=== PATIENT | male | born 1990 | race Caucasian/White ===

== ENCOUNTER 2017-09-05 17:34 | Observation (INO) | payer OTHER ==
[~2017-09-05] VITALS: Ht 180.3 cm; Wt 61.2 kg
[2017-09-05 18:21] LABS: ABSOLUTE BASOPHIL COUNT 0.1 /CUMM (0.0-0.2); ABSOLUTE EOSINOPHIL COUNT 0.2 /CUMM (0.0-0.7); ABSOLUTE GRANULOCYTE CT 12.4 /CUMM (1.4-6.5); ABSOLUTE LYMPH COUNT 3.6 /CUMM (1.2-3.4); BASOPHIL % 0.3 % (0.0-2.0); EOSINOPHIL % 1.3 % (0-5); GRANULOCYTE % 72.1 % (42.2-75.2); HEMATOCRIT 45.9 % (42-52); MEAN CORPUSCULAR HGB 30.5 PG (27.0-31.0); MEAN CORPUSCULAR HGB CONC 33.1 G/DL (33.0-37.0); MEAN CORPUSCULAR VOLUME 92.4 FL (80.0-94.0); MEAN PLATELET VOLUME 10.8 FL (7.4-10.4); PLATELET COUNT 208 /CUMM (130-400); RBC DISTRIBUTION WIDTH 13.3 % (11.5-14.5); RED BLOOD CELL CT 4.97 /CUMM (4.70-6.10)
[2017-09-05 18:44] LABS: WHITE BLOOD CELL COUNT 17.2 /CUMM (4.8-10.8)
--- NOTE | 2017-09-05 20:08 | ED GI/GU/ABDOMINAL COMPLAINT ---
History of Present Illness General Chief Complaint: Abdominal Pain/Flank Pain Stated Complaint: ABD PAIN Source: patient Exam Limitations: no limitations Vital Signs & Intake/Output Vital Signs & Intake/Output Vital Signs Date Time Temp Pulse Resp B/P B/P Pulse O2 O2 Flow FiO2 Mean Ox Delivery Rate 09/05 1800 96.5 60 18 141/84 98 Room Air Room Air Allergies Coded Allergies: NO KNOWN ALLERGIES (11/21/10) Triage Note: TRIAGE: 27 Y/O MALE PRESENTS C/O 4-12/19 MID UPPER ABDOMINAL PAIN SICNE THIS MORNING. REPORTS LAST BM THIS MORNING - "SOFT/ LOOSE, A LITTLE IFFY, I WAS DRINKING." "IT COULD BE A PULLED MUSCLE, I WAS REALLY WRENCHING HARD WHILE I WORKING ON MY TRUCK." Triage Nurses Notes Reviewed? yes HPI: Patient presents with periumbilical abdominal pain that started yesterday. Patient described an achy sensation that is exacerbated with eating. Positive nausea but no vomiting. No constipation or diarrhea. The pain started yesterday midafternoon but then slowly went away by late evening. Patient woke up feeling fine but shortly after breakfast the pain came back and said the worst until today. There is no radiation of the pain. At worst the pain is 7 out of 10. Patient also states that for the past few days both of his testicles have been aching. The pain is constant. There are no aggravating or mitigating patches. There is no radiation of the pain. He rates the pain at a 3 out of 10. There is no known trauma. There is no dysuria. There is no penile discharge. There is no swelling. Past History Travel History Traveled to [place] past 21 day No Medical History Any Pertinent Medical History? 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 No Review of Systems Review of Systems Constitutional: Reports: no symptoms. EENTM: Reports: no symptoms. Respiratory: Reports: no symptoms. Cardiovascular: Reports: no symptoms. GI: Reports: see HPI, abdominal pain, nausea. Genitourinary: Reports: see HPI. Musculoskeletal: Reports: no symptoms. Skin: Reports: no symptoms. Neurological/Psychological: Reports: no symptoms. Hematologic/Endocrine: Reports: no symptoms. Immunologic/Allergic: Reports: no symptoms. All Other Systems: Reviewed and Negative Physical Exam Physical Exam General Appearance: well developed/nourished, alert, awake, mild distress Head: atraumatic, normal appearance Eyes: Bilateral: PERRL, EOMI, other (ANICTERIC). Ears, Nose, Throat, Mouth: hearing grossly normal, DRY MUCUS MEMBRANES Neck: normal inspection, supple, full range of motion Respiratory: normal breath sounds, chest non-tender, no respiratory distress, lungs clear Cardiovascular: regular rate/rhythm, normal peripheral pulses Gastrointestinal: normal bowel sounds, soft, no organomegaly, RLQ TENDERNESS, NO REBOUND OR GUARDING, NO HENDRICKSON'S SIGN Male Genitals: normal genitalia, normal cremaster reflex, NO SWELLING, NO TENDERNESS, NO DISCHARGE, NO HERNINA Back: normal inspection, normal range of motion, NO CVA TENDERNESS Extremities: normal range of motion Neurologic/Psych: no motor/sensory deficits, awake, alert, oriented x 3, normal gait, normal mood/affect Skin: intact, normal color, warm/dry Core Measures ACS in differential dx? No Sepsis Present: No Sepsis Focused Exam Completed? No Progress Differential Diagnosis: appendicitis, cholecystitis, diverticulitis, epididymitis, hernia, ischemic bowel, inflamm bowel dis, ureterolithiasis, urethritis, UTI/pyelo Plan of Care: Orders Procedure Date/time Status Nothing by Mouth 09/[address] in observation 09/05 2238 Active Pathway - chart 09/[address] in observation 09/05 2225 Active Patient Data 09/05 2225 Active Code Status 09/05 2225 Active URINALYSIS 09/05 2004 Complete LIPASE 09/05 1801 Complete COMPREHENSIVE METABOLIC PANEL 09/05 180 Complete CBC WITHOUT DIFFERENTIAL 09/05 180 Complete AMYLASE 09/05 180 Complete VTE Mechanical Prophylaxis 09/05 UNK Active Vital Signs 09/05 UNK Active Activity/Ambulation 09/05 UNK Active Current Medications Sig/Lee Start time Last Medication Dose Stop Time Status Admin Ampicillin Sodium/ 3,000 MG Q6 09/06 0400 UNVr Sulbactam Sodium (Unasyn) Sodium Chloride 100 ML (Normal Saline 0.9%) Acetaminophen 650 MG Q6P PRN 09/05 2229 UNVr (Tylenol) Dextrose/Water 1,000 ML .[id number] 09/05 2229 UNir (D5W 1000) Ketorolac 30 MG Q6-PRN PRN 09/05 2229 UNVr Tromethamine (Toradol) Morphine Sulfate 4 MG Q2P PRN 09/05 2229 UNVr (Morphine) Ondansetron HCl 4 MG Q6P PRN 09/05 2229 UNVr (Zofran) Oxycodone/ 1 TAB Q4P PRN 09/05 2229 UNVr Acetaminophen (Percocet) Oxycodone/ 2 TAB Q4P PRN 09/05 2229 UNVr Acetaminophen (Percocet) Promethazine HCl 12.5 MG Q6P PRN 09/05 2229 UNVr (Phenergen) 09/12 2228 Laboratory Tests 09/05/172108: Urine Color YEL, Urine Clarity CLEAR, Urine pH 6.0, Ur Specific [place] 1.010, Urine Protein NEG, Urine Ketones TRACE H, Urine Nitrite NEG, Urine Bilirubin NEG, Urine Urobilinogen 0.2, Ur Leukocyte Esterase NEG, Ur Microscopic SEDIMENT EXAMINED, Urine RBC RARE, Urine WBC RARE, Ur Epithelial Cells RARE, Urine Bacteria RARE H, Urine Mucus FEW, Urine Hemoglobin SMALL H, Urine Glucose NEG 09/05/17 1807: Anion Gap 12, Estimated GFR > 60, BUN/Creatinine Ratio 21.4, Glucose 97, Calcium 10.2, Total Bilirubin 0.6, AST 20, ALT 27, Alkaline Phosphatase 65, Total Protein 7.8, Albumin 5.1 H, Globulin 2.7, Albumin/Globulin Ratio 1.9, Amylase 71, Lipase 162, CBC w Diff NO MAN DIFF REQ, RBC 4.97, MCV 92.4, MCH 30.5, MCHC 33.1, RDW 13.3, MPV 10.8 H, Gran % 72.1, Lymphocytes % 20.7, Monocytes % 5.6, Eosinophils % 1.3, Basophils % 0.3, Absolute Granulocytes 12.4 H, Absolute Lymphocytes 3.6 H, Absolute Monocytes 1.0 H, Absolute Eosinophils 0.2, Absolute Basophils 0.1 Diagnostic Imaging: Viewed by Me: CT Scan. Discussed w/RAD: CT Scan. Radiology Impression: PATIENT: FERNANDEZ PALOMO PRESENT AGE: 27 PATIENT ACCOUNT NO: [id number] : 90 LOCATION: [facility] ORDERING PHYSICIAN: Jennie Garay MD SERVICE DATE: 09/05/17 EXAM TYPE: CAT - CT ABD & PELVIS W IV CONTRAST EXAMINATION: CT ABDOMEN AND PELVIS WITH CONTRAST CLINICAL INFORMATION: Right lower quadrant pain COMPARISON: None TECHNIQUE: Multidetector volumetric imaging was performed of the abdomen and pelvis following IV administration of 94 mL of Optiray 320 intravenous contrast. Sagittal and coronal reformatted images were obtained on the technologist's workstation. DLP: 240 mGy-cm FINDINGS: LUNG BASES: The visualized lung bases are unremarkable. LIVER, GALLBLADDER, AND BILIARY TREE: The liver is normal in size, shape, and attenuation. No focal hepatic lesion or biliary ductal dilatation is present. The gallbladder is unremarkable with no evidence of radiopaque gallstones, gallbladder wall thickening, or obvious pericholecystic inflammatory changes. PANCREAS: Unremarkable. SPLEEN: Unremarkable. ADRENAL GLANDS: Unremarkable. KIDNEYS AND URETERS: The kidneys are normal in size, shape, and attenuation. No hydronephrosis, hydroureter, or calculi seen. No perinephric stranding. BLADDER: Unremarkable. GASTROINTESTINAL TRACT: Lack of intra- abdominal fat significantly limits evaluation. A fluid-filled retrocecal tubular structure is identified in the right lower quadrant. The structure terminates near Morison's pouch. There is adjacent inflammatory change. The diameter of this structure measures 0.9 cm (image 40, series 2, image 50, series 602). Imaging findings are consistent with acute appendicitis. Remainder of the bowel appears unremarkable. ABDOMINAL WALL: No significant hernia is appreciated. LYMPH NODES: Normal. VASCULAR: Unremarkable. PELVIC VISCERA: Unremarkable. OSSEOUS STRUCTURES: Unremarkable. IMPRESSION: Findings consistent with acute appendicitis. Note the appendix is retrocecal in location. DICTATED BY: Tamika Hodges MD DATE/TIME DICTATED:09/05/172139 PIPE STRESS ENGINEER:JF DATE/TIME TRANSCRIBED:09/05/172139 CONFIDENTIAL, DO NOT COPY WITHOUT APPROPRIATE AUTHORIZATION. <Electronically signed in Other Vendor System> SIGNED BY: Tamika Hodges MD 09/05/172150 Initial ED EKG: none Comments: He has been controlled after the IV Zofran. The pain is unchanged after the IV Toradol however the patient does not want anything else for the pain this time. Departure Departure Disposition: STILL A PATIENT Condition: Stable Clinical Impression Primary Impression: Appendicitis Referrals: Terrie WATT,Devika Rivera (PCP/Family) Departure Forms: Customer Survey General Discharge Information Observation Note Spoke With: Cristian Pham MD Physician Advisor Notified: DIANA WATT,JENNIE Haney. Place Patient In: Non-ED OBS Care Area Rationale for Observation: My rational for observation is as follows [NPO, IV ABX, SURGERY IN THE AM].
--- NOTE | 2017-09-05 21:51 | CT SCAN REPORT ---
EXAMINATION: CT ABDOMEN AND PELVIS WITH CONTRAST CLINICAL INFORMATION: Right lower quadrant pain COMPARISON: None TECHNIQUE: Multidetector volumetric imaging was performed of the abdomen and pelvis following IV administration of 94 mL of Optiray 320 intravenous contrast. Sagittal and coronal reformatted images were obtained on the technologist's workstation. DLP: 240 mGy-cm FINDINGS: LUNG BASES: The visualized lung bases are unremarkable. LIVER, GALLBLADDER, AND BILIARY TREE: The liver is normal in size, shape, and attenuation. No focal hepatic lesion or biliary ductal dilatation is present. The gallbladder is unremarkable with no evidence of radiopaque gallstones, gallbladder wall thickening, or obvious pericholecystic inflammatory changes. PANCREAS: Unremarkable. SPLEEN: Unremarkable. ADRENAL GLANDS: Unremarkable. KIDNEYS AND URETERS: The kidneys are normal in size, shape, and attenuation. No hydronephrosis, hydroureter, or calculi seen. No perinephric stranding. BLADDER: Unremarkable. GASTROINTESTINAL TRACT: Lack of intra-abdominal fat significantly limits evaluation. A fluid-filled retrocecal tubular structure is identified in the right lower quadrant. The structure terminates near Morison's pouch. There is adjacent inflammatory change. The diameter of this structure measures 0.9 cm (image 40, series 2, image 50, series 602). Imaging findings are consistent with acute appendicitis. Remainder of the bowel appears unremarkable. ABDOMINAL WALL: No significant hernia is appreciated. LYMPH NODES: Normal. VASCULAR: Unremarkable. PELVIC VISCERA: Unremarkable. OSSEOUS STRUCTURES: Unremarkable. IMPRESSION: Findings consistent with acute appendicitis. Note the appendix is retrocecal in location.
--- NOTE | 2017-09-05 22:49 | History & Physical Pre-Op ---
James Nicholson 09/05/17 0921: General Information and HPI MD Statement: I have seen and personally examined FERNANDEZ PALOMO and documented this H&P. The patient is a 27 year old M who presented with a patient stated chief complaint of ABDOMINAL PAIN. Source of Information: patient Exam Limitations: no limitations History of Present Illness: 27 yo healthy male with 2 days of abdominal pain, started central, then localized to the RLQ today. getting worse. moderate to severe pain, sharp. no nvd, no fever. had normal appetite until after lunch, pain became more severe then. was able to eat a full lunch, had a ham sandwich. mother and father both had appendicitis. he is a cigarette smoker. no hx of same, no tx thus far. was seen in ED and CT scan shows appendicitis. surgery was consulted for management. 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 EENTM: Reports: no symptoms. Cardiovascular: Reports: no symptoms. Respiratory: Reports: no symptoms. GI: Reports: see HPI. Genitourinary: Reports: no symptoms. Musculoskeletal: Reports: no symptoms. Skin: Reports: no symptoms. Neurological/Psychological: Reports: no symptoms. Hematologic/Endocrine: Reports: no symptoms. Exam & Diagnostic Data Last 24 Hrs of Vital Signs/I&O Vital Signs Date Time Temp Pulse Resp B/P B/P Pulse O2 O2 Flow FiO2 Mean Ox Delivery Rate 09/05 1800 96.5 60 18 141/84 98 Room Air Room Air Physical Exam General Appearance Alert, Oriented X3, Cooperative, No Acute Distress Skin No Rashes HEENT Atraumatic, PERRLA, EOMI, Mucous Membr. moist/pink Neck Supple, No JVD, No thryomegaly Cardiovascular Regular Rate, Normal S1, Normal S2, No Murmurs Lungs Clear to Auscultation, Normal Air Movement Abdomen Normal Bowel Sounds, Soft, TENDER RLQ OVER MCBURNEYS POINT. NEG ROVSING , NEG PSOAS SIGN NO OTHER ABDOMINAL TENDERNESS Neurological Normal Gait, Normal Speech, Strength at 5/5 X4 Ext, Normal Tone, Sensation Intact Extremities No Clubbing, No Cyanosis, No Edema, Normal Pulses, No Tenderness/ Swelling Last 24 Hrs of Labs/Preston: Laboratory Tests 09/05/172108: Urine Color YEL, Urine Clarity CLEAR, Urine pH 6.0, Ur Specific [place] 1.010, Urine Protein NEG, Urine Ketones TRACE H, Urine Nitrite NEG, Urine Bilirubin NEG, Urine Urobilinogen 0.2, Ur Leukocyte Esterase NEG, Ur Microscopic SEDIMENT EXAMINED, Urine RBC RARE, Urine WBC RARE, Ur Epithelial Cells RARE, Urine Bacteria RARE H, Urine Mucus FEW, Urine Hemoglobin SMALL H, Urine Glucose NEG 09/05/171806: Anion Gap 12, Estimated GFR > 60, BUN/Creatinine Ratio 21.4, Glucose 97, Calcium 10.2, Total Bilirubin 0.6, AST 20, ALT 27, Alkaline Phosphatase 65, Total Protein 7.8, Albumin 5.1 H, Globulin 2.7, Albumin/Globulin Ratio 1.9, Amylase 71, Lipase 162, CBC w Diff NO MAN DIFF REQ, RBC 4.97, MCV 92.4, MCH 30.5, MCHC 33.1, RDW 13.3, MPV 10.8 H, Gran % 72.1, Lymphocytes % 20.7, Monocytes % 5.6, Eosinophils % 1.3, Basophils % 0.3, Absolute Granulocytes 12.4 H, Absolute Lymphocytes 3.6 H, Absolute Monocytes 1.0 H, Absolute Eosinophils 0.2, Absolute Basophils 0.1 Diagnostic Data Other Results PATIENT: FERNANDEZ PALOMO PRESENT AGE: 27 PATIENT ACCOUNT NO: [id number] : 90 LOCATION: [facility] [place] ORDERING PHYSICIAN: Skyler Garay MD SERVICE DATE: 09/05/17 EXAM TYPE: CAT - CT ABD & PELVIS W IV CONTRAST EXAMINATION: CT ABDOMEN AND PELVIS WITH CONTRAST CLINICAL INFORMATION: Right lower quadrant pain COMPARISON: None TECHNIQUE: Multidetector volumetric imaging was performed of the abdomen and pelvis following IV administration of 94 mL of Optiray 320 intravenous contrast. Sagittal and coronal reformatted images were obtained on the technologist's workstation. DLP: 240 mGy-cm FINDINGS: LUNG BASES: The visualized lung bases are unremarkable. LIVER, GALLBLADDER, AND BILIARY TREE: The liver is normal in size, shape, and attenuation. No focal hepatic lesion or biliary ductal dilatation is present. The gallbladder is unremarkable with no evidence of radiopaque gallstones, gallbladder wall thickening, or obvious pericholecystic inflammatory changes. PANCREAS: Unremarkable. SPLEEN: Unremarkable. ADRENAL GLANDS: Unremarkable. KIDNEYS AND URETERS: The kidneys are normal in size, shape, and attenuation. No hydronephrosis, hydroureter, or calculi seen. No perinephric stranding. BLADDER: Unremarkable. GASTROINTESTINAL TRACT: Lack of intra-abdominal fat significantly limits evaluation. A fluid-filled retrocecal tubular structure is identified in the right lower quadrant. The structure terminates near Morison's pouch. There is adjacent inflammatory change. The diameter of this structure measures 0.9 cm (image 40, series 2, image 50, series 602). Imaging findings are consistent with acute appendicitis. Remainder of the bowel appears unremarkable. ABDOMINAL WALL: No significant hernia is appreciated. LYMPH NODES: Normal. VASCULAR: Unremarkable. PELVIC VISCERA: Unremarkable. OSSEOUS STRUCTURES: Unremarkable. IMPRESSION: Findings consistent with acute appendicitis. Note the appendix is retrocecal in location. DICTATED BY: Tamika Hodges MD DATE/TIME DICTATED:09/05/172139 PARAMEDICAL AIDE:JF DATE/TIME TRANSCRIBED:09/05/172139 Assessment/Plan Assessment/Plan: acute appendicitis unasyn 3g q6 npo to OR in am for lap appy IVF pain meds as needed 23hr observation DW Dr Ankit Abarca pt and parents who understand and agree with plan. As Ranked By This Provider Problem List: 1. Appendicitis Cristian Pham MD 09/06/17 1223: Attending MD Review Statement Attending Statement Attending MD Statement: examined this patient, discuss w/resident/PA/BATTERY PLATE ASSEMBLER, reviewed images Attending Assessment/Plan: 27 yo young male with acute appendicitis. Recommend broad spectrum IV abx and laparoscopic appendectomy when OR room available. Family history significant for rocuronium anaphylactic reaction. Will d/w anesthesia.
[2017-09-06 00:24] VITALS: BP 118/66
[2017-09-06 07:11] VITALS: BP 118/66
--- NOTE | 2017-09-06 08:56 | Admission Core Measures ---
Acute Coronary Syndrome (CM) ACS Core Measures Acute Coronary Syndrome Diagnosis No Congestive Heart Failure (NEW) CHF Core Measures Congestive Heart Failure Diagnosis No Cerebrovascular Accident (NEW) CVA Core Measures CVA/TIA Diagnosis No Venous Thromboembolism VTE Core Christie (View Protocol) VTE Risk Factors Acute Medical Illness No Mechanical VTE Prophylaxis d/t N/A MechProphylax Ordered No VTE Pharm Prophylaxis d/t NA PharmProphylax ordered Problem List As ranked by this Provider includes Assessment & Plan 1. Appendicitis
--- NOTE | 2017-09-06 16:17 | Operative Report ---
Operative/Inv Procedure Report Surgery Date: 09/06/17 Name of Procedure: Laparoscopic appendectomy Pre-Operative Diagnosis: Acute appendicitis Post-Operative Diagnosis: Same Estimated Blood Loss: scant Surgeon/Worm Picker: Ankit WATT,Cristian Haney/Barbara GARCIA Anesthesia: general endotracheal tube Specimens: Appendix Operative/Procedure Note Note: After consent patient is brought to the operating room and laid supine. General anesthesia was obtained his abdomen was prepped and draped. Skin above the umbilicus was after local anesthesia a curvilinear incision made sharply. We dissected through subcutaneous tissues tissues bluntly and identified the fascia. It was grasped with Hyacinth's and a fasciotomy created sharply. The peritoneum was entered sharply and a blunt Mcarthur port was placed. Pneumoperitoneum was achieved. 2, 5 mm ports were placed in the suprapubic region and left lower quadrant, after local anesthesia was instilled and under direct vision the camera. Patient placed in Trendelenburg and rotated towards the left. The abdomen was explored. There was a retro-cecal appendix moderately inflamed but no perforation. We took down the peritoneum laterally to mobilize the cecum. The appendix was encased in retroperitoneal tissues and took some dissection to free it up. Eventually were able to mobilize enough to bring it into the field of view. It was quite elongated and inflamed. A window in the base of the mesentery was developed with a [place] dissector. The mesentery is divided with Endo KEENAN Herron load. The base was divided with the reload. It was placed in Endo Catch bag and cinched up. Further exploration revealed that a piece of the appendix was still in place. It was dissected free and resected with reload of the stapler. Was extracted and passed off the field. The right lower quadrant and pelvis were then irrigated with normal saline. Hemostasis was adequate. Ports then removed. The fascia was closed 0 Vicryl suture. Skin incisions closed with 4-0 Vicryl. Steri-Strips and sterile dressing applied. Sponge and needle counts are correct CC: Terrie WATT,Devika Rivera
--- NOTE | 2017-09-06 17:16 | PN- General Surgery ---
Subjective Subjective: Post op check Awake, alert No complaints at this time Denies nausea, surgical pain - tolerable Objective Vital Signs and I&Os Vital Signs Date Time Temp Pulse Resp B/P B/P Pulse O2 O2 Flow FiO2 Mean Ox Delivery Rate 09/06 0711 97.9 64 18 118/66 100 09/06 0024 97.9 56 18 118/66 95 09/06 0004 98.0 51 18 124/63 98 Room Air 09/05 2249 98.3 56 17 131/71 100 Room Air 09/05 1800 96.5 60 18 141/84 98 Room Air Room Air Intake & Output 09/06 1600 09/06 0800 09/06 0000 09/05 1600 09/05 0800 09/05 0000 Intake Total 110 145 6014 Output Total 350 250 Balance 510 100 750 Intake, IV 560 194 2472 Intake, Oral 60 Output, Urine 350 250 Patient 135 lb 135 lb Weight Weight Reported by Patient Measurement Method Physical Exam: BP 137/80 RR 16 Sat 97% RA General: alert and oriented times three chest: clear anteriorly bilaterally, RRR Abd: soft, non distended Ext: warm, no edema Wds: dressed, dry Assessment/Plan Assessment/Plan 27yo male s/p lap appy dc home fu 2 weeks pain management Core Measures Venous Thromboembolism VTE Risk Factors Acute Medical Illness No Mechanical VTE Prophylaxis d/t N/A MechProphylax Ordered No VTE Pharm Prophylaxis d/t NA PharmProphylax ordered
[2017-09-06] MEDS ORDERED: PERCOCET 5-3251 EACH PO (17:17)
--- NOTE | 2017-09-06 17:20 | Patient Discharge Instructions ---
Discharge Instructions General Discharge Information You were seen/treated for: appendicitis You had these procedures: lap appendectomy Watch for these problems: temp>101. increased redness or drainage of wounds Do not soak the wound: Yes Other wound care: Keep incision clean and dry Diet Continue normal diet: Yes Activity Activity Self Limited: Yes Pounds, do NOT lift more than: 10 Acute Coronary Syndrome Inclusion Criteria At DC or during hospital stay patient has or had the following: ACS DIAGNOSIS No Discharge Core Measures Meds if any: Prescribed or Continued at Discharge Meds if any: NOT Prescribed or Continued at Discharge Congestive Heart Failure Inclusion Criteria At DC or during hospital stay patient has or had the following: CHF DIAGNOSIS No Discharge Core Measures Meds if any: Prescribed or Continued at Discharge Meds if any: NOT Prescribed or Continued at Discharge Cerebrovascular accident Inclusion Criteria At DC or during hospital stay patient has or had the following: CVA/TIA Diagnosis No Discharge Core Measures Meds if any: Prescribed or Continued at Discharge Meds if any: NOT Prescribed or Continued at Discharge Venous thromboembolism Inclusion Criteria VTE Diagnosis No VTE Type NONE VTE Confirmed by (Test) NONE Discharge Core Measures - Per Current guidelines, there needs to be overlap - treatment for the first 5 days of Warfarin therapy. - If discharged on Warfarin prior to 5 days of - overlap therapy, the patient will need to be - assessed for post discharge needs including - *Post discharge parental anticoagulation - *Warfarin and/or parental anticoagulation education - *Follow up date to check INR post discharge At least 5 days overlap therapy as Inpatient No Meds if any: Prescribed or Continued at Discharge Note: Overlap Therapy is Warfarin and Anticoagulant Meds if any: NOT Prescribed or Continued at Discharge
[2017-09-06 19:31] VITALS: BP 126/84
[2017-09-06 22:55] VITALS: BP 130/70
[2017-09-07 06:28] VITALS: BP 120/80
--- NOTE | 2017-09-07 10:25 | PN- General Surgery ---
Subjective Subjective: No acute overnight events reported. C/O alize-incisional pain. No nausea,no emesis. Tolerating po. Denies chest pain, shortness of breath and difficulty breathing. Has been oob ambulating. Has voided. Objective Vital Signs and I&Os Vital Signs Date Time Temp Pulse Resp B/P B/P Pulse O2 O2 Flow FiO2 Mean Ox Delivery Rate 09/07 0628 98.0 64 20 120/80 98 Room Air 09/06 2255 98.6 77 18 130/70 96 09/06 1931 98.2 60 18 126/84 96 Intake & Output 09/07 1600 09/07 0800 09/07 0000 09/06 1600 09/06 0800 09/06 0000 Intake Total 400 220 725 845 9966 Output Total 1050 500 350 250 Balance -650 -280 510 100 750 Intake, IV 229 105 1055 Intake, Oral 400 220 60 Output, Urine 1050 500 350 250 Patient 135 lb 135 lb Weight Weight Reported by Patient Measurement Method Physical Exam: General: Alert and oriented x3, no acute distress Cardiac: RRR, s1s2 Pulm: CTA bilaterally ABD: NOn-distended, alize-incisional tenderness noted, dressings dry and intact Extremities: Moves all extremities, distal sensation intact. Skin warm and well perfused. bialteral calves soft and non-tender Assessment/Plan Assessment/Plan This is a 27 year old male, POD 1, s/p lap appy, obs for pain control and iv abx overnight -Continue diet as tolerated -po percocet for pain as needed -DC to home today -Follow up with Dr. Pham in 2 weeks Pt seen by Dr. Pham and myself this am, poc discussed Core Measures Venous Thromboembolism VTE Risk Factors Acute Medical Illness No Mechanical VTE Prophylaxis d/t N/A MechProphylax Ordered No VTE Pharm Prophylaxis d/t NA PharmProphylax ordered
--- NOTE | 2017-09-08 08:43 | Surg Short-stay <48hrs Dis Sum ---
Visit Information Visit Dates Admission Date: 09/05/17 Discharge Date: 09/07/17 Surgical Short Stay DC Summary Admission Diagnosis: APPENDICITIS Final Diagnosis: SAME Procedure(s): LAPAROSCOPIC APPENDECTOMY Summary/Significant Findings: NONE Condition at Discharge: GOOD Discharge Disposition: home or self care Discharge instructions provided to patient/family: Yes Post discharge follow-up plan: 2 WEEKS
== END 2017-09-07 10:48 ==
LOC: ERH 17:34 → ERHI 22:39 → 2NB 22:39 → ENRESERV 23:58 → 2NB 09-06 00:15 → ENTRNSPT 09-06 17:28 → EDTRNSPT 09-06 18:03 → EDTRNSPTSTS 09-06 18:03 → CMPTRNSPT 09-06 18:21 → ENTRNSPT 09-07 10:39 → EDTRNSPTSTS 09-07 10:43 → EDTRNSPT 09-07 10:43 → 2NB 09-07 10:48 → CMPTRNSPT 09-07 11:52
PROVIDERS: Emergency Medicine
DX: K35.80 Unspecified acute appendicitis (principal); F17.200 Nicotine dependence, unspecified, uncomplicated; F12.90 Cannabis use, unspecified, uncomplicated
CPT/HCPCS: 74177; 81001; 88304; 96374; 96375; 96376; C9399; G0378; J1100; J1644; J1885; J2405; J2550; J7060